=== PATIENT | male | born 1940 | race Hispanic/Latino ===

== ENCOUNTER 2021-10-06 05:33 | Inpatient (IN) | payer OTHER ==
[2021-10-04 12:23] LABS: BASOPHILS % (AUTO) 0.4 % (0.0-5.0); EOSINOPHILS % (AUTO) 0.9 % (0.0-8.0); HEMATOCRIT 42.5 % (42-54); LYMPHOCYTES % (AUTO) 18.8 % (21.0-51.0); MEAN CORPUSCULAR HEMOGLOBIN 32.7 pg (27.0-33.0); MEAN CORPUSCULAR HGB CONC 35.1 g/dL (32.0-36.0); MEAN CORPUSCULAR VOLUME 93.2 fL (79-99); MONOCYTES % (AUTO) 8.8 % (3.0-13.0); NEUTROPHILS % (AUTO) 70.7 % (40.0-77.0); PLATELET COUNT (AUTO) 153 K/uL (130-400); RED BLOOD CELL COUNT(AUTO) 4.56 MIL/uL (4.50-6.20); RED CELL DISTRIBUTION WIDTH 12.9 % (11.0-15.5)
[2021-10-04 15:52] LABS: POTASSIUM 3.8 mmol/L (3.5-5.1)
[2021-10-05 10:40] VITALS: BP 159/80
[2021-10-06] VITALS (22 sets, daily range): BP systolic 98–140; BP diastolic 50–85
[~2021-10-06] VITALS: Ht 180.3 cm; Wt 85.7 kg
[~2021-10-06 05:33] MED LIST: LEVO25TA54 PO; TERB250T89 PO
[2021-10-06] MEDS: CEFAZOLIN SODIUM 1 GM VIAL IVP SCH ×2 (06:00→08:00)
[2021-10-06] MEDS ORDERED: LACTATED RINGERS 1000ML 1,000 ML IV ONE (06:31)
[2021-10-06] MEDS ORDERED: LIDOCAINE PF 100MG/5ML (2%) SYRINGE 5ML ONE (06:53)
[2021-10-06] MEDS ORDERED: SUCCINYLCHOLINE CHLORIDE 20 MG/ML 10 ML VIAL ONE (06:53)
[2021-10-06] MEDS ORDERED: DEXAMETHASONE SOD PHOSPHATE 10MG/ML 1ML VIAL ONE ×2 (06:53→07:26)
[2021-10-06] MEDS ORDERED: ONDANSETRON 4MG INJ ONE ×2 (06:53→08:54)
[2021-10-06] MEDS ORDERED: MIDAZOLAM HCL 1 MG/ML 2ML VIAL ONE (06:53)
[2021-10-06] MEDS ORDERED: PROPOFOL 10 MG/ML 20ML VIAL IV ONE (06:53)
[2021-10-06] MEDS ORDERED: GLYCOPYRROLATE 1 MG/5 ML SYRINGE ONE (06:53)
[2021-10-06] MEDS ORDERED: NEOSTIGMINE 5MG/5ML SYR IV ONE (06:53)
[2021-10-06] MEDS ORDERED: ROCURONIUM 10MG/1ML SYR 10 MG/ML ML ONE (06:54)
[2021-10-06] MEDS ORDERED: FENTANYL CITRATE PF 50 MCG/1 ML 2ML VIAL ONE ×4 (06:56→10:44)
[2021-10-06] MEDS ORDERED: THROMBIN-JMI 20000 UNIT KIT TP ONE (06:59)
[2021-10-06] MEDS ORDERED: BUPIVACAINE/EPI/PF 0.25% 30ML VIAL IJ ONE (06:59)
[2021-10-06] MEDS: CEFAZOLIN SODIUM 1 GM VIAL ONE ×2 (07:30→13:09)
[2021-10-06] MEDS ORDERED: PROPOFOL 1000 MG/100 ML 100 ML IV ONE ×2 (07:41→10:46)
[2021-10-06] MEDS ORDERED: MANNITOL 20% 500ML BAG 500 ML IV ONE (07:55)
[2021-10-06] MEDS ORDERED: ARTIFICIAL TEARS 3.5 GM OINTMENT ONE (08:42)
[2021-10-06] MEDS ORDERED: PHENYLEPHRINE HCL 10 MG/ML 1ML VIAL IV ONE (08:42)
[2021-10-06] MEDS ORDERED: GENTAMICIN 80 MG/NS 100 ML PB 100 ML IV ONE (10:59)
[2021-10-06] MEDS ORDERED: CEFAZOLIN SODIUM 1 GM VIAL ONE (13:08)
[2021-10-06] MEDS ORDERED: NALOXONE HCL 0.4 MG/1 ML ML ONE (13:21)
[2021-10-06] MEDS ORDERED: MORPHINE 2 MG SYG IVP PRN (13:30)
[2021-10-06] MEDS ORDERED: LACTATED RINGERS 1000ML 1,000 ML IV SCH (13:30)
[2021-10-06] MEDS ORDERED: PROMETHAZINE HCL 25 MG/ML 1ML AMPULE IM PRN (13:30)
[2021-10-06] MEDS ORDERED: CEFAZOLIN SODIUM 1 GM VIAL IVP SCH (13:30)
[2021-10-06] MEDS ORDERED: HYDROCODONE/ACETAMINOPHEN 5/325 MG TAB PO PRN (13:30)
[2021-10-06] MEDS ORDERED: 0.9%NACL 10ML VIAL IVP PRN (13:30)
[2021-10-06] MEDS: DEXAMETHASONE SOD PHOSPHATE 4 MG/ML 1ML VIAL IVP SCH ×2 (16:03→21:23)
[2021-10-07] MEDS: DEXAMETHASONE SOD PHOSPHATE 4 MG/ML 1ML VIAL IVP SCH ×5 (01:32→23:32)
[2021-10-07 04:35] VITALS: BP 124/69
[2021-10-07] MEDS ORDERED: LEVOTHYROXINE 25 MCG TABLET ONE (05:18)
[2021-10-07] MEDS: LEVOTHYROXINE 25 MCG TABLET PO SCH (06:16)
[2021-10-07 08:00] VITALS: BP 135/72
[2021-10-07] MEDS ORDERED: **HM**(Terbinafine HCl 250 MG PO SCH (09:00)
[2021-10-07 12:00] VITALS: BP 111/62
[2021-10-07 17:02] VITALS: BP 102/57
[2021-10-08] MEDS ORDERED: KETO10 PO (00:01)
[2021-10-08 00:10] VITALS: BP 132/72
[2021-10-08 04:34] VITALS: BP 125/70
[2021-10-08] MEDS: LEVOTHYROXINE 25 MCG TABLET PO SCH (05:40)
[2021-10-08] MEDS: DEXAMETHASONE SOD PHOSPHATE 4 MG/ML 1ML VIAL IVP SCH (05:40)
[2021-10-08 07:59] VITALS: BP 143/81
== END 2021-10-08 09:54 | disposition home or self-care (01) | DRG 473 ==
LOC: DAHIP 05:33 → OBSVTOIN 05:33 → 4BH 14:46
PROVIDERS: ADMIT Neurological Surgery; ATTEND Neurological Surgery
PROC: 0RG20J0 Fusion of 2 or more Cervical Vertebral Joints with Synthetic Substitute, Anterior Approach, Anterior Column, Open Approach (ICD-10-PCS; principal; 2021-10-06 07:30)
PROC: 01N10ZZ Release Cervical Nerve, Open Approach (ICD-10-PCS; 2021-10-06 07:30)
PROC: 4A11X4G Monitoring of Peripheral Nervous Electrical Activity, Intraoperative, External Approach (ICD-10-PCS; 2021-10-06 07:30)
DX: M48.02 Spinal stenosis, cervical region (principal); M54.12 Radiculopathy, cervical region; Z20.822 Contact with and (suspected) exposure to COVID-19
CPT/HCPCS: 36415; 71045; 72020; 80051; 85025; 87635; G0378; J0330; J0690; J1100; J1580; J2001; J2250; J2310; J2370; J2405; J2550; J2704; J2710; J3010; J3490; J7120

== ENCOUNTER 2022-05-09 05:32 | Observation (INO) | payer OTHER ==
[2022-05-06 09:27] LABS: BASOPHILS % (AUTO) 0.4 % (0.0-5.0); EOSINOPHILS % (AUTO) 1.6 % (0.0-8.0); HEMATOCRIT 43.1 % (42-54); LYMPHOCYTES % (AUTO) 20.5 % (21.0-51.0); MEAN CORPUSCULAR HEMOGLOBIN 31.6 pg (27.0-33.0); MEAN CORPUSCULAR HGB CONC 34.8 g/dL (32.0-36.0); MEAN CORPUSCULAR VOLUME 90.9 fL (79-99); MONOCYTES % (AUTO) 11.7 % (3.0-13.0); NEUTROPHILS % (AUTO) 65.2 % (40.0-77.0); PLATELET COUNT (AUTO) 163 K/uL (130-400); RED BLOOD CELL COUNT(AUTO) 4.74 MIL/uL (4.50-6.20); RED CELL DISTRIBUTION WIDTH 13.2 % (11.0-15.5); WHITE BLOOD COUNT (AUTO) 6.7 K/uL (4.8-10.8)
[2022-05-06 09:35] VITALS: BP 153/82
[2022-05-06 09:47] LABS: ALBUMIN 3.9 g/dL (3.5-5.0); CARBON DIOXIDE 26 mmol/L (21-32); CHLORIDE 106 mmol/L (101-111); CREATININE 0.8 mg/dL (0.5-1.5); GLOMERULAR FILTR. RATE CALC 99 mL/min (>60); GLUCOSE,RANDOM 96 mg/dL (70-105); POTASSIUM 4.1 mmol/L (3.5-5.1); SODIUM SERUM 138 mmol/L (136-145); UREA NITROGEN, BLOOD 22 mg/dL (7-18)
[2022-05-06 09:49] LABS: INR 1.04 (0.85-1.15); PROTHROMBIN TIME 11.3 SEC (9.6-11.6)
[2022-05-06 09:50] LABS: PARTIAL THROMBOPLASTIN TIME 30.2 SEC (26.3-35.5)
[2022-05-06 10:00] LABS: CRP QUANTITATIVE < 2.00 mg/L (0.00-9.0)
[~2022-05-09] VITALS: Ht 182.9 cm; Wt 86.7 kg
[2022-05-09] VITALS (25 sets, daily range): BP systolic 107–156; BP diastolic 50–80
[2022-05-09] MEDS: CEFAZOLIN SODIUM 2 GM VIAL IVPB SCH ×2 (05:00→08:40)
[~2022-05-09 05:32] MED LIST changes: +IBUP-2076 PO; +KETOROLAC 30MG VIAL (30MG/ML) ONE; -LEVO25TA54 PO; +ROPIVACAINE 0.5% 5MG/ML 30ML IJ ONE; -TERB250T89 PO; +TRANEXAMIC ACID 1000MG/10ML ONE
[2022-05-09] MEDS ORDERED: LACTATED RINGERS 1000ML 1,000 ML IV ONE (06:17)
[2022-05-09] MEDS ORDERED: SUCCINYLCHOLINE CHLORIDE 20 MG/ML 10 ML VIAL ONE (07:25)
[2022-05-09] MEDS ORDERED: MIDAZOLAM HCL 1 MG/ML 2ML VIAL ONE (07:26)
[2022-05-09] MEDS ORDERED: GLYCOPYRROLATE 1 MG/5 ML SYRINGE ONE (07:26)
[2022-05-09] MEDS ORDERED: NEOSTIGMINE 5MG/5ML SYR IV ONE (07:26)
[2022-05-09] MEDS ORDERED: PHENYLEPHRINE HCL 10 MG/ML 1ML VIAL IV ONE (07:26)
[2022-05-09] MEDS ORDERED: PROPOFOL 10 MG/ML 20ML VIAL IV ONE (07:26)
[2022-05-09] MEDS ORDERED: LIDOCAINE PF 100MG/5ML (2%) SYRINGE 5ML ONE (07:27)
[2022-05-09] MEDS ORDERED: ROCURONIUM 10MG/1ML SYR 10 MG/ML ML ONE (07:27)
[2022-05-09] MEDS ORDERED: FENTANYL CITRATE PF 50 MCG/1 ML 2ML VIAL ONE (07:27)
[2022-05-09] MEDS ORDERED: DEXAMETHASONE SOD PHOSPHATE 4 MG/ML 1ML VIAL ONE ×2 (07:28)
[2022-05-09] MEDS ORDERED: ONDANSETRON 4MG INJ ONE (07:32)
[2022-05-09 07:44] LABS: APPEARANCE,URINE CLOUDY (CLEAR); BILIRUBIN,URINE NEGATIVE (NEGATIVE); COLOR,URINE LIGHT-YELLOW (YELLOW); GLUCOSE, URINE (UA) NEGATIVE (NEGATIVE); KETONES,URINE NEGATIVE (NEGATIVE); LEUKOCYTE ESTERASE ,URINE 500 Leu/uL (NEGATIVE); NITRATE,URINE 2+ (NEGATIVE); OCCULT BLOOD,URINE SMALL (NEGATIVE); PROTEIN,URINE NEGATIVE (NEGATIVE); UROBILINOGEN,URINE 0.2 mg/dL (0.2-1.0)
[2022-05-09 07:57] LABS: BACTERIA,URINE RARE /HPF (None Seen); MUCUS,URINE RARE LPF (None Seen); WBC,URINE TNTC /HPF (0-1)
[2022-05-09] MEDS ORDERED: CYCLOBENZAPRINE HCL 10 MG TABLET PO PRN (11:00)
[2022-05-09] MEDS ORDERED: POTASSIUM CHLORIDE 10% ELIXIR 20 MEQ/15 ML UDCUP PO PRN (11:00)
[2022-05-09] MEDS ORDERED: TRAMADOL HCL 50 MG TABLET PO PRN (11:00)
[2022-05-09] MEDS ORDERED: KCL 20 MEQ ERTAB PO PRN (11:00)
[2022-05-09] MEDS ORDERED: KETOROLAC 15MG/ML VIAL (15MG/ML) IV PRN (11:00)
[2022-05-09] MEDS ORDERED: POTASSIUM CHLORIDE 20MEQ/100ML 100 ML IV PRN (11:00)
[2022-05-09] MEDS ORDERED: HYDROCODONE/ACETAMINOPHEN 5/325 MG TAB PO PRN (11:00)
[2022-05-09] MEDS ORDERED: 0.9%NACL 1000ML 1,000 ML IV SCH (11:00)
[2022-05-09] MEDS ORDERED: CALCIUM CARB 500MG PO PRN (11:00)
[2022-05-09] MEDS ORDERED: LIDOCAINE HCL-MPF 1% 2ML VIAL IV PRN (11:00)
[2022-05-09] MEDS ORDERED: FERROUS FUMARATE 324 MG TABLET PO PRN (11:00)
[2022-05-09] MEDS ORDERED: ONDANSETRON 4MG INJ IVP PRN (11:00)
[2022-05-09] MEDS: KETOROLAC 15MG/ML VIAL (15MG/ML) IV SCH ×2 (12:54→19:50)
[2022-05-09] MEDS: GABAPENTIN 100 MG CAPSULE PO SCH ×2 (14:51→19:51)
[2022-05-09] MEDS: CEFAZOLIN SODIUM 2 GM VIAL IVP SCH (16:44)
[2022-05-10] VITALS: BP 107/58
[2022-05-10] MEDS: CEFAZOLIN SODIUM 2 GM VIAL IVP SCH (00:17)
[2022-05-10] MEDS: KETOROLAC 15MG/ML VIAL (15MG/ML) IV SCH (03:45)
[2022-05-10 04:00] VITALS: BP 124/75
[2022-05-10 04:03] LABS: HEMATOCRIT 37.6 % (42-54); MEAN CORPUSCULAR HGB CONC 34.8 g/dL (32.0-36.0); MEAN CORPUSCULAR VOLUME 91.9 fL (79-99); RED BLOOD CELL COUNT(AUTO) 4.09 MIL/uL (4.50-6.20); WHITE BLOOD COUNT (AUTO) 12.1 K/uL (4.8-10.8)
[2022-05-10 04:18] LABS: POTASSIUM 4.3 mmol/L (3.5-5.1)
[2022-05-10 08:00] VITALS: BP 110/73
[2022-05-10] MEDS: GABAPENTIN 100 MG CAPSULE PO SCH ×2 (08:42→14:54)
[2022-05-10] MEDS ORDERED: ASPIRIN 325MG TAB PO SCH (09:00)
[2022-05-10] MEDS ORDERED: POLYETHYLENE GLYCOL 3350 17 GM POWD.PACK PO SCH (09:00)
[2022-05-10 11:00] VITALS: BP 126/57
[2022-05-10 16:00] VITALS: BP 113/57
[2022-05-10] MEDS ORDERED: GABA100C PO (17:40)
[2022-05-10] MEDS ORDERED: HYDR-4060 PO (17:40)
[2022-05-10] MEDS ORDERED: CYCL-309 PO (17:40)
[2022-05-10] MEDS ORDERED: ASPI-1026 PO (17:40)
[2022-05-10] MEDS ORDERED: DOCU-116 PO (17:40)
[2022-05-12] MEDS ORDERED: BISACODYL 10 MG SUPP.RECT RC PRN (11:00)
== END 2022-05-10 19:10 | disposition home health service (06) ==
LOC: DAH 05:32 → DAHIP 05:33 → DAH 05:33 → 4DH 11:29
PROVIDERS: ADMIT Student in an Organized Health Care Education/Training Program; ATTEND Student in an Organized Health Care Education/Training Program
DX: M17.12 Unilateral primary osteoarthritis, left knee (principal); Z20.822 Contact with and (suspected) exposure to COVID-19; M25.562 Pain in left knee; G89.29 Other chronic pain; D62 Acute posthemorrhagic anemia; E03.9 Hypothyroidism, unspecified; R33.8 Other retention of urine; Z79.899 Other long term (current) drug therapy; Z98.890 Other specified postprocedural states
CPT/HCPCS: 82040; 80048 ×2; 85025; 85610; 85730; 84134; 86140; 87426; 36415 ×2; 87641; 97039 ×4; 27447; 96374; 96376 ×2; 96375; 76942; 64447; 87077; 87088; 87186; 81001; 73560; 97161; 85027; 97116 ×2; 97530; J1100 ×2; G0378 ×31; A4215 ×2; J7120; J3010; J3490 ×3; J2710; J0330; J2001; J2250; J2704; J2405 ×2; J1885 ×4; J2795 ×2; J2370; J0690 ×3; C1713; G0168; C1776 ×2; A4649 ×5; A6255; A5120; A4223; A4222; A4221; A4663